=== PATIENT | female | born 1970 | race Caucasian/White ===

== ENCOUNTER → 2018-10-31 23:13 | Outpatient (CLI) | payer OTHER, SELFPAY ==
[2018-10-31 19:33] VITALS: BMI 31.1
[2018-10-31 23:37] LABS: Thyroid Stim Hormone (TSH) 1.81 uIU/mL (0.358-3.74)
== END ==
PROVIDERS: Family Provider Nurse Practitioner; PCP Nurse Practitioner; Referring Provider Nurse Practitioner; Visit Provider Nurse Practitioner
DX: E03.9 Hypothyroidism, unspecified (principal)
CPT/HCPCS: 84443

== ENCOUNTER → 2019-11-17 20:57 | Outpatient (CLI) | payer OTHER, SELFPAY ==
[2019-11-17 15:48] VITALS: BMI 32.5
[2019-11-17 21:30] LABS: Thyroid Stim Hormone (TSH) 2.07 uIU/mL (0.358-3.74)
== END ==
LOC: OLS.AHF 20:58 → LABSPEC 11-18 09:24
PROVIDERS: PCP Nurse Practitioner; Referring Provider Nurse Practitioner; Visit Provider Nurse Practitioner
DX: E03.9 Hypothyroidism, unspecified (principal)
CPT/HCPCS: 84443

== ENCOUNTER → 2020-12-02 21:44 | Outpatient (CLI) | payer BC, SELFPAY ==
[2020-12-02 22:40] LABS: Thyroid Stim Hormone (TSH) 1.52 uIU/mL (0.358-3.74)
== END ==
PROVIDERS: PCP Nurse Practitioner; Visit Provider Nurse Practitioner
DX: E03.9 Hypothyroidism, unspecified (principal)
CPT/HCPCS: 84443

== ENCOUNTER 2021-05-18 08:10 | Outpatient (CLI) | payer BC, SELFPAY ==
--- NOTE | 2021-05-18 08:15 | RAD_ITS ---
STUDY: X-RAY - ESOPHAGUS (BARIUM SWALLOW) WITH FLUOROSCOPY REASON FOR EXAM: Female, 51 years old. GERD TECHNIQUE: 19 view(s) of the esophagus were obtained following swallowing of barium. FLUOROSCOPY TIME (if supplied): (27 seconds) minutes/seconds COMPARISON: None. FINDINGS: There is no demonstrated esophageal foreign body. There is no demonstrated stricture or mucosal abnormality. Normal gastroesophageal junction, without a demonstrated hiatal hernia. The patient ingested a 12 mm tablet of barium without any difficulty. Normal visualized aortic arch and descending thoracic aorta. Normal visualized pulmonary parenchyma. Normal visualized osseous structures of the thorax. RAD/Esophagus Dual Contrast IMPRESSION: Normal plain film x-ray examination (barium swallow) of the esophagus. Electronically Signed: Regan Sears MD at 12:28 EST ,
== END 2021-05-18 23:59 | disposition home or self-care (01) ==
LOC: RAD 08:12
PROVIDERS: PCP Nurse Practitioner; Referring Provider Otolaryngology; Visit Provider Otolaryngology
DX: K21.9 Gastro-esophageal reflux disease without esophagitis (principal); R49.0 Dysphonia
CPT/HCPCS: 74221

== ENCOUNTER → 2022-01-31 | Outpatient (CLI) | payer OTHER, SELFPAY ==
[2022-01-31 22:28] LABS: Hemoglobin A1c 5.5 % (3.8-5.6)
[2022-01-31 22:41] LABS: Thyroid Stim Hormone (TSH) 3.63 uIU/mL (0.358-3.74)
== END | disposition home or self-care (01) ==
PROVIDERS: PCP Nurse Practitioner; Visit Provider Nurse Practitioner
DX: E03.9 Hypothyroidism, unspecified (principal); R63.5 Abnormal weight gain; E88.81 Metabolic syndrome and other insulin resistance
CPT/HCPCS: 82533; 83036; 84443

== ENCOUNTER → 2022-05-03 | Outpatient (CLI) | payer OTHER, SELFPAY ==
[2022-05-03 22:28] LABS: Thyroid Stim Hormone (TSH) 1.81 uIU/mL (0.358-3.74)
[2022-05-04 09:24] LABS: ALB/GLOB Ratio 1.1 RATIO (0.9-2.4); AST(SGOT) 13 U/L (15-37); Alanine Aminotransfer ALT/SGPT 25 U/L (13-56); Albumin, Serum 3.8 g/dL (3.2-5.0); Alkaline Phosphatase 67 U/L (45-117); Anion Gap 8 (5-15); BUN 14 mg/dL (7-18); CRP 3.88 mg/L (0.0-3.0); Calcium,Total 10.1 mg/dL (8.5-10.1); Chloride 107 mmol/L (98-107); Creatinine, Serum 0.88 mg/dL (0.55-1.02); EST Glomerular Filtration Rate 72 mL/min (>60); Est Glom Filt Rate - Afr Amer 87 mL/min (>60); Globulin 3.5 g/dL (2.2-4.2); Glucose 86 mg/dL (74-106); Potassium 3.8 mmol/L (3.5-5.1); Protein, Total 7.3 g/dL (6.4-8.2); Sodium Level 141 mmol/L (136-145)
[2022-05-04 09:58] LABS: Troponin-I HS 8 pg/mL (3.0-54.0)
== END | disposition home or self-care (01) ==
PROVIDERS: PCP Nurse Practitioner; Visit Provider Nurse Practitioner
DX: E03.9 Hypothyroidism, unspecified (principal); R11.0 Nausea; E07.9 Disorder of thyroid, unspecified
CPT/HCPCS: 80053; 84443; 84484; 86140

== ENCOUNTER → 2023-04-26 | Outpatient (CLI) | payer OTHER, SELFPAY ==
--- OUTSIDE RECORDS SUMMARY | 2023-04-26 20:14 | XMS RPT_ITS | CCD ---
Author Name Unknown Address [address] [place] [address] Organization [facility] Care Team Providers Care Coding Quality Coordinator Name Role Phone BaldoboyRadha bansal Unavailable Unavailable Yariel Saulius Unavailable Unavailable Marylou Meyers Unavailable Unavailable Jatin CARD DOFFER.Marylou PEARSON Primary Care Provide r Jatin CARD DOFFER.Marylou PEARSON Primary Care Provide r MARYLOU MEYERS Primary Care Unavailable MARYLOU MEYERS Primary Care Unavailable DANAY BRAVO Referring Unavailable MARYLOU MEYERS Primary Care Unavailable DANAY BRAVO Attending Unavailable Allergies Allergy Classification Reported Allergen(s) Allergy Type Date of Onset Reaction(s) Facility (1 source) No Known Medication Allergies; Translations: [No Known Medication Allergies] Propensity to adverse reactions to drug (disorder) [facility] Repository (7 sources) cefdinir; Translations: [CEFDINIR] Drug Allergy 9 Rash [facility] (7 sources) Sulfonamides (Antibiotic); Translations: [SULFA (SULFONAMIDE ANTIBIOTICS)] Drug Allergy 2 Rash, Itching [facility] (6 sources) Iodine; Translations: [IODINE] Drug Allergy 2 Other: See Comments [facility] Medications Current Medications Medication Drug Class(es) Dates Sig (Normalized) Sig (Original) amoxicillin 875 mg / clavulanate 125 mg oral tablet (2 sources) Penicillin-class Antibacterial Start: 02-21-2023 End: 02-28-2023 take 1 tablet by mouth twice daily amoxicillin-clav ulanate potassium (AUGMENTIN) 875-125 mg per tablet Indications: Otitis media with effusion, bilateral Take 1 tablet by mouth two times a day for 7 days. 14 tablet 0 02/21/2023 02/28/2023 Active Completed/Discontinued Medications Medication Drug Class(es) Dates Sig (Normalized) Sig (Original) Ethinyl Estradiol / Norethindrone (4 sources) Estrogen Start: 06-12-2022 take 1 tablet by mouth once daily Norethindrone-Eth Estradiol (OVCON-35) 0.4-35 mg-mcg per tablet Take 1 tablet by mouth once daily. New pack every 21 days. 112 tablet 4 06/12/2022 Active Problems Active Problems Problem Classification Problem Date Documented Da te Episodic/Chronic Esophageal disorders (6 sources) Gastroesophageal reflux disease; Translations: [Gastro-esophageal reflux disease without esophagitis] 08-28-2011 Chronic Menopausal disorders (1 source) Menopausal symptom; Translations: [Menopausal and female climacteric states] Chronic Mood disorders (6 sources) Premenstrual dysphoric disorder; Translations: [Premenstrual dysphoric disorder] 08-28-2011 Chronic Other upper respiratory infections (1 source) Sore throat symptom; Translations: [Acute pharyngitis, unspecified] 02-21-2023 Episodic Otitis media and related conditions (1 source) Otitis media; Translations: [Unspecified nonsuppurative otitis media, bilateral] 02-21-2023 Episodic Thyroid disorders (6 sources) Hypothyroidism; Translations: [Hypothyroidism, unspecified] 10-01-2013 Chronic Viral infection (1 source) Viral disease; Translations: [Viral infection, unspecified] 02-21-2023 Episodic Past or Other Problems Problem Classification Problem Date Documented Da te Episodic/Chronic Other screening for suspected conditions (not mental disorders or infectious disease) (4 sources) Patient encounter status; Translations: [Encounter for screening mammogram for malignant neoplasm of breast] Onset: 06-22-2022 Episodic Results Test Name Value Interpretation Reference Range Facil ity Vital Signs Date Time Vital Sign Value Performing Clinician Curtis hernandez 02-21-2023 13:01-0500 Body temperature 98.91 [degF] Nikole Hargrove APRN.CNP Work Phone: [facility] 02-21-2023 13:01-0500 Body weight 76.66 kg Nikole Hargrove APRN.CNP Work Phone: [facility] 02-21-2023 13:01-0500 Diastolic blood pressure 80 mm[Hg] Nikole Praisler-Wood CARD DOFFER.HORTICULTURE INSTRUCTOR Work Phone: [facility] 02-21-2023 13:01-0500 Heart rate 88 /min Nikole Praisler-Wood CARD DOFFER.HORTICULTURE INSTRUCTOR Work Phone: [facility] 02-21-2023 13:01-0500 Respiratory rate 16 /min Nikole Praisler-Wood CARD DOFFER.HORTICULTURE INSTRUCTOR Work Phone: [facility] 02-21-2023 13:01-0500 SaO2% (BldA) [Mass fraction] 97 % Nikole Praisler-Wood CARD DOFFER.HORTICULTURE INSTRUCTOR Work Phone: [facility] 02-21-2023 13:01-0500 Systolic blood pressure 138 mm[Hg] Nikole Praisler-Wood CARD DOFFER.HORTICULTURE INSTRUCTOR Work Phone: [facility] 06-12-2022 08:38-0400 Body weight 78.93 kg Danay Bravo MD Work Phone: [facility] 06-12-2022 08:38-0400 Diastolic blood pressure 88 mm[Hg] Danay Bravo MD Work Phone: [facility] 06-12-2022 08:38-0400 Systolic blood pressure 136 mm[Hg] Danay Bravo MD Work Phone: [facility] 06-06-2021 16:14-0400 Body weight 74.39 kg Danay Bravo MD Work Phone: [facility] 06-06-2021 16:14-0400 Diastolic blood pressure 80 mm[Hg] Danay Bravo MD Work Phone: [facility] 06-06-2021 16:14-0400 Systolic blood pressure 110 mm[Hg] Danay Bravo MD Work Phone: [facility] Encounters Encounter Date Encounter Type Care Provider Facility Start: 02-21-2023 End: 02-21-2023 ambulatory MARYLOU MEYERS Facility:[facility] Start: 02-21-2023 End: 02-21-2023 Patient encounter procedure Nikole DiazKatieJeremiah NATALIE.HORTICULTURE INSTRUCTOR Work Phone: [facility] Procedures Date Procedure Procedure Detail Performing Clinician Start: 02-21-2023 STREP A MOLECULAR (POC) Charmaine Garza APRN.HORTICULTURE INSTRUCTOR Work Phone: Start: 06-22-2022 End: 06-22-2022 Mammography Danay Bravo MD Work Phone: Start: 10-16-2012 Mammography Danay nickerson MD Work Phone: Plan of Treatment Date Care Activity Detail Author Start: 05-11-2029 Urine microalbumin profile [facility] Start: 06-13-2027 HPV TESTING HPV TESTING [facility] Start: 06-13-2027 PAP TESTING PAP TESTING [facility] Start: 08-10-2024 DIABETES SCREEN DIABETES SCREEN [facility] Start: 08-10-2024 Diabetes Screening Diabetes Screening [facility] Start: 06-23-2023 Mammography [facility] Start: 11-17-2022 Covid-19 Vaccine ( season) Covid-19 Vaccine ( season) [facility] Start: 11-17-2022 Influenza vaccination [facility] Start: 09-26-2022 HPV TESTING HPV TESTING [facility] Start: 09-26-2022 PAP TESTING PAP TESTING [facility] Start: 11-17-2021 Influenza vaccination INFLUENZA (#1) [facility] Start: 11-17-2020 Influenza vaccination INFLUENZA (#1) [facility] Start: 10-30-2020 COVID-19 VACCINE (3 - Booster for Pfizer series) COVID-19 VACCINE (3 - Booster for Pfizer series) [facility] Start: 07-25-2020 COVID-19 VACCINE (3 - Booster for Pfizer series) COVID-19 VACCINE (3 - Booster for Pfizer series) [facility] Start: 01-03-2020 SHINGRIX VACCINE (1 of 2) SHINGRIX VACCINE (1 of 2) [facility] Start: 2015 COLOGUARD (FIT-DNA) COLOGUARD (FIT-DNA) [facility] Start: 2015 Colonoscopy COLONOSCOPY [facility] Start: 2015 COLORECTAL CANCER SCREENING COLORECTAL CANCER SCREENING [facility] Start: [address] COLONOGRAPHY [facility] Start: 2015 DIABETES SCREEN DIABETES SCREEN [facility] Start: 2015 FECAL OCCULT BLOOD FECAL OCCULT BLOOD [facility] Start: 2015 Lipid 1996 panel - Serum or Plasma Lipid Screening [facility] Start: 2015 LIPID SCREEN LIPID SCREEN [facility] Start: 2015 SIGMOIDOSCOPY SIGMOIDOSCOPY [facility] Start: 10-16-2013 Mammography MAMMOGRAM [facility] Start: 01-03-1988 ANNUAL PCP TEAM CHRONIC DISEASE VISIT ANNUAL PCP TEAM CHRONIC DISEASE VISIT [facility] Start: 01-03-1988 HEPATITIS C SCREENING HEPATITIS C SCREENING [facility] Start: 01-03-1988 HIV SCREENING HIV SCREENING [facility] Start: 1970 HEPATITIS B (1 of 3 - 3-dose series) HEPATITIS B (1 of 3 - 3-dose series) [facility] Start: 1970 Hepatitis B Vaccine (1 of 3 - 3-dose series) Hepatitis B Vaccine (1 of 3 - 3-dose series) [facility] COVID & INFLUENZA A/ B & RSV NAAT, ROUTINE COVID & INFLUENZA A/B & RSV NAAT, ROUTINE Microbiology Routine Viral illness 02/21/2023 1:26 PM EST [facility] Work Phone: End: 07-12-2023 FERNANDA SCREENING FERNANDA SCREENING Radiology Routine Encounter for screening mammogram for breast cancer 1 Occurrences starting 06/12/2022 until 07/12/2023 [facility] Work Phone: Immunizations Immunization Date Immunization Notes Care Provider Fa cility 05-11-2019 tetanus toxoid, redu elier diphtheria toxoid, and acellular pertussis vaccine, adsorbed Danay Bravo MD Work Phone: [facility] 04-08-2019 pneumococcal polysaccharide vaccine, 23 valent Danay Bravo MD Work Phone: [facility] 12-30-2017 influenza virus vacc ine, unspecified formulation Screen Wstr [facility] Payers Date Payer Category Payer Unknown [id number] 2020 Unknown [employer] PPO [id number] 2020-Present [phone] [address] [place] [address] PPO [id number] 2020 Unknown [id number] 2017 Unknown 1970 Unknown [id number] Social History Date Type Detail Facility Start: 08-28-2011 Tobacco smoking stat [facility] Never smoked tobacco [facility] Start: 08-28-2011 Tobacco use and exposure Smoke less tobacco non-user [facility] Start: 06-06-2021 End: 02-21-2023 Alcohol intake Current drinker of alcohol (finding) [facility] Start: 08-28-2011 History SDOH Alcohol Comment rare [facility] Start: 1970 Sex Assigned At Not on file [facility] Start: 05-27-2021 End: 06-06-2021 Exposure to SARS-CoV-2 (event) Not sure [facility] Start: 04-12-2022 End: 06-12-2022 History of Social function [facility] Start: 04-12-2022 End: 06-12-2022 Tobacco use panel [facility] National Score (1-10 0), lower number is lower risk 73 [facility] Clinical Notes 06-06-2021 to 02-21-2023 Patient InstructionsNikole Hargrove APRN.HORTICULTURE INSTRUCTOR - 02/21/2023 1:24 PM ESTLetter - Mammography Coordinator - 06/23/2022 2:17 PM Kaity Shah RT(R) - 06/22/2022 8:10 AM EDT Note Date & Type Note Facility 02-21-2023 Note HNO ID: [id number] Author: Nikole Hargrove APRN.HORTICULTURE INSTRUCTOR Service: ? Author Type: Nurse Practitioner Type: Progress Notes Filed: 02/21/2023 1:33 PM Note Text: Subjective Sore Throat Associated symptoms include congestion, coughing, ear pain and headaches. Daya Cortes is a 53 year old female who presents with cough, congestion, sore throat for the past 3 days. She has been having some ear pain and congestion. She has never had a fever. She has been taking nyquil, sudafed, tylenol and advil without relief of symptoms. 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 Review of Systems Constitutional: Negative for chills and fever. HENT: Positive for congestion, ear pain and sore throat. Respiratory: Positive for cough. Cardiovascular: Negative. Musculoskeletal: Negative for myalgias. Neurological: Positive for headaches. BP 138/80 Pulse 88 Temp 37.2 ?C (98.9 ?F) Resp 16 Wt 76.7 kg (169 lb) LMP 05/28/2022 SpO2 97% BMI 30.91 kg/m? PAST MEDICAL HISTORY Diagnosis Date GERD (gastroesophageal reflux disease) Hypothyroid PMDD (premenstrual dysphoric disorder) PAST SURGICAL HISTORY Procedure Laterality Date NONE ALLERGIES Cefdinir, Contrast Dye [Iodine], and Sulfa (Sulfonamide Antibiotics) MEDICATIONS Norethindrone-Eth Estradiol (OVCON-35) 0.4-35 mg-mcg per tablet Take 1 tablet by mouth once daily. New pack every 21 days. LEVOTHYROXINE SODIUM (LEVOTHYROXINE ORAL) Take by mouth. OMEPRAZOLE 40 mg capsule amoxicillin-clavulanate potassium (AUGMENTIN) 875-125 mg per tablet Take 1 tablet by mouth two times a day for 7 days. RANITIDINE HCL (ZANTAC ORAL) Take by mouth. FAMILY HISTORY Problem Relation Age of Onset Cancer Mother lung Cancer Father ? Alzheimer's Disease Father Cancer Paternal Grandfather Bone Social History Tobacco Use Smoking status: Never Smokeless tobacco: Never Substance Use Topics Alcohol use: Yes Comment: rare Drug use: No Objective Physical Exam Vitals and nursing note reviewed. Constitutional: Appearance: Normal appearance. HENT: Mouth/Throat: Mouth: Mucous membranes are moist. Pharynx: Posterior oropharyngeal erythema (slight) present. Tonsils: 1+ on the right. 1+ on the left. Cardiovascular: Rate and Rhythm: Normal rate and regular rhythm. Heart sounds: Normal heart sounds. Pulmonary: Effort: Pulmonary effort is normal. No respiratory distress. Breath sounds: Normal breath sounds. No wheezing or rales. Lymphadenopathy: Cervical: Cervical adenopathy present. Neurological: Mental Status: She is alert. ASSESSMENT/PLAN: 1. Sore throat - ICD9: 462, ICD10: J02.9 (primary diagnosis) - suspect viral - Group A strep molecular testing negative - Discussed supportive care treatment with fluids, rest and analgesia. - STREP A MOLECULAR (POC) 2. Otitis media with effusion, bilateral - ICD9: 381.4, ICD10: H65.93 - Will begin treatment with as per antibiotic as written, see orders - Supportive care with plenty of fluids, rest, and analgesia prn. - AMOXICILLIN 875 MG-POTASSIUM CLAVULANATE 125 MG TABLET 3. Viral illness - ICD9: 079.99, ICD10: B34.9 - Discussed viral etiology and rationale for treatment. - Symptomatic treatment with prn analgesia - Supportive care with fluids and rest - COVID AND INFLUENZA A/B AND RSV NAAT, ROUTINE - Follow-up with your PCP in 3-5 days if symptoms have not improved or sooner if symptoms worsen - Discussed red flags and need for immediate medical evaluation if any occur. - Discussed supportive care treatment with fluids, rest and analgesia. - Discussed expected course of illness Nikole Hargrove APRN.LILI [facility] 02-21-2023 Instructions Nikole Hargrove APRN.LILI - 02/21/2023 1:25 PM EST ASSESSMENT/PLAN: 1. Sore throat - ICD9: 462, ICD10: J02.9 (primary diagnosis) - suspect viral - Group A strep molecular testing negative - Discussed supportive care treatment with fluids, rest and analgesia. - STREP A MOLECULAR (POC) 2. Otitis media with effusion, bilateral - ICD9: 381.4, ICD10: H65.93 - Will begin treatment with as per antibiotic as written, see orders - Supportive care with plenty of fluids, rest, and analgesia prn. - AMOXICILLIN 875 MG-POTASSIUM CLAVULANATE 125 MG TABLET - AMOXICILLIN 875 MG-POTASSIUM CLAVULANATE 125 MG TABLET 3. Viral illness - ICD9: 079.99, ICD10: B34.9 - Discussed viral etiology and rationale for treatment. - Symptomatic treatment with prn analgesia - Supportive care with fluids and rest - COVID & INFLUENZA A/B & RSV NAAT, ROUTINE - Follow-up with your PCP in 3-5 days if symptoms have not improved or sooner if symptoms worsen - Discussed red flags and need for immediate medical evaluation if any occur. - Discussed supportive care treatment with fluids, rest and analgesia. - Discussed expected course of illness Nikole Hargrove APRN.HORTICULTURE INSTRUCTOR documented in this encounter [facility] 02-21-2023 History of Present illness Narrative Subjective Sore Throat Associated symptoms include congestion, coughing, ear pain and headaches. Daya Cortes is a 53 year old female who presents with cough, congestion, sore throat for the past 3 days. She has been having some ear pain and congestion. She has never had a fever. She has been taking nyquil, sudafed, tylenol and advil without relief of symptoms. 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 Review of Systems Constitutional: Negative for chills and fever. HENT: Positive for congestion, ear pain and sore throat. Respiratory: Positive for cough. Cardiovascular: Negative. Musculoskeletal: Negative for myalgias. Neurological: Positive for headaches. BP 138/80 Pulse 88 Temp 37.2 C (98.9 F) Resp 16 Wt 76.7 kg (169 lb) LMP 05/28/2022 SpO2 97% BMI 30.91 kg/m PAST MEDICAL HISTORY Diagnosis Date GERD (gastroesophageal reflux disease) Hypothyroid PMDD (premenstrual dysphoric disorder) PAST SURGICAL HISTORY Procedure Laterality Date NONE ALLERGIES Cefdinir, Contrast Dye [Iodine], and Sulfa (Sulfonamide Antibiotics) MEDICATIONS Norethindrone-Eth Estradiol (OVCON-35) 0.4-35 mg-mcg per tablet Take 1 tablet by mouth once daily. New pack every 21 days. LEVOTHYROXINE SODIUM (LEVOTHYROXINE ORAL) Take by mouth. OMEPRAZOLE 40 mg capsule amoxicillin-clavulanate potassium (AUGMENTIN) 875-125 mg per tablet Take 1 tablet by mouth two times a day for 7 days. RANITIDINE HCL (ZANTAC ORAL) Take by mouth. FAMILY HISTORY Problem Relation Age of Onset Cancer Mother lung Cancer Father ? Alzheimer's Disease Father Cancer Paternal Grandfather Bone Social History Tobacco Use Smoking status: Never Smokeless tobacco: Never Substance Use Topics Alcohol use: Yes Comment: rare Drug use: No Objective Physical Exam Vitals and nursing note reviewed. Constitutional: Appearance: Normal appearance. HENT: Mouth/Throat: Mouth: Mucous membranes are moist. Pharynx: Posterior oropharyngeal erythema (slight) present. Tonsils: 1+ on the right. 1+ on the left. Cardiovascular: Rate and Rhythm: Normal rate and regular rhythm. Heart sounds: Normal heart sounds. Pulmonary: Effort: Pulmonary effort is normal. No respiratory distress. Breath sounds: Normal breath sounds. No wheezing or rales. Lymphadenopathy: Cervical: Cervical adenopathy present. Neurological: Mental Status: She is alert. ASSESSMENT/PLAN: 1. Sore throat - ICD9: 462, ICD10: J02.9 (primary diagnosis) - suspect viral - Group A strep molecular testing negative - Discussed supportive care treatment with fluids, rest and analgesia. - STREP A MOLECULAR (POC) 2. Otitis media with effusion, bilateral - ICD9: 381.4, ICD10: H65.93 - Will begin treatment with as per antibiotic as written, see orders - Supportive care with plenty of fluids, rest, and analgesia prn. - AMOXICILLIN 875 MG-POTASSIUM CLAVULANATE 125 MG TABLET 3. Viral illness - ICD9: 079.99, ICD10: B34.9 - Discussed viral etiology and rationale for treatment. - Symptomatic treatment with prn analgesia - Supportive care with fluids and rest - COVID & INFLUENZA A/B & RSV NAAT, ROUTINE - Follow-up with your PCP in 3-5 days if symptoms have not improved or sooner if symptoms worsen - Discussed red flags and need for immediate medical evaluation if any occur. - Discussed supportive care treatment with fluids, rest and analgesia. - Discussed expected course of illness Nikole Hargrove APRN.HORTICULTURE INSTRUCTOR documented in this encounter [facility] 06-23-2022 Miscellaneous Notes June 26, 2022 PID: [id number] Daya Cortes [address] [place] [address] Dear Ms. Cortes, We are pleased to inform you that the results of your recent breast imaging exam on 06/22/2022 are normal. Early detection of cancer is very important. We also understand recommendations regarding breast cancer screening are controversial. Please discuss with your primary care provider which strategy is best for you and whether a mammogram is right for you. Your imaging studies and report will be kept on file at [facility] as part of your permanent medical record and are available for your continuing care. Thank you for allowing us to help in meeting your health care needs. Sincerely, Dr. Joshi Interpreting Radiologist [facility] (Normal over 40) documented in this encounter [facility] 06-22-2022 Note HNO ID: [id number] Author: RT Jocelin([place]) Service: ? Author Type: Technologist Type: Progress Notes Filed: 06/22/2022 8:18 AM Note Text: Radiology Service Progress Note PATIENT NAME: Daya Cortes DATE OF SERVICE: June 22, 2022 TIME: 8:17 AM PATIENT IDENTITY VERIFICATION COMPLETED USING TWO (2) IDENTIFIERS: Name and Date of confirmed by patient verbally. FALL SCREENING: Has the patient had 2 falls in the last year or 1 fall with injury or currently using an Ambulatory Assistive Device (Walker, Cane, Wheelchair, Crutches, etc.)? No PATIENT GENDER DATA: Female. status: : No status: NO. PATIENT RELEVANT IMPLANT DATA REVIEWED: Not Applicable RADIOLOGY DEPARTMENT: Mammography PERIPHERAL IV DATA: Not applicable SIGNED BY: RT Jocelin([place]) June 22, 2022 8:17 AM [facility] 06-22-2022 History of Present illness Narrative Radiology Service Progress Note PATIENT NAME: Daya Cortes DATE OF SERVICE: June 22, 2022 TIME: 8:17 AM PATIENT IDENTITY VERIFICATION COMPLETED USING TWO (2) IDENTIFIERS: Name and Date of confirmed by patient verbally. FALL SCREENING: Has the patient had 2 falls in the last year or 1 fall with injury or currently using an Ambulatory Assistive Device (Walker, Cane, Wheelchair, Crutches, etc.)? No PATIENT GENDER DATA: Female. status: : No status: NO. PATIENT RELEVANT IMPLANT DATA REVIEWED: Not Applicable RADIOLOGY DEPARTMENT: Mammography PERIPHERAL IV DATA: Not applicable SIGNED BY: RT Jocelin(R) June 22, 2022 8:17 AM documented in this encounter [facility] 06-12-2022 Note HNO ID: [id number] Author: Danay Bravo MD Service: ? Author Type: Physician Type: Progress Notes Filed: 06/12/2022 9:12 AM Note Text: Daya Yanez is a 52 year old who presents for an annual gynecologic exam with complaints, menopausal symptoms. Postmenopausal: on continuous OCP's HRT use: as above Last Pap: 10/03/2017 normal HPV: 10/01/2017 negative History of abnormal pap: No Last mammogram: 2012 normal History of abnormal mammogram: No OB History T2 L3 SAB0 IAB0 Ectopic0 Multiple1 Live Births3 Digital Photo Printer History LMP: 05/28/2022, Having periods Age at Menarche: Age at First : Age at Menopause: Digital Photo Printer History Comments: Sexual Activity: Yes; No partner data on record Contraception: No contraception data on record PAST MEDICAL HISTORY Diagnosis Date GERD (gastroesophageal reflux disease) Hypothyroid PMDD (premenstrual dysphoric disorder) PAST SURGICAL HISTORY Procedure Laterality Date NONE FAMILY HISTORY Problem Relation Age of Onset Cancer Mother lung Cancer Father ? Alzheimer's Disease Father Cancer Paternal Grandfather Bone SOCIAL HISTORY Social History Tobacco Use Smoking status: Never Smokeless tobacco: Never Substance Use Topics Alcohol use: Yes Comment: rare Drug use: No REVIEW OF SYSTEMS Abdomen: No abdominal pain, nausea, vomiting, diarrhea, or constipation. No bloating, early satiety, indigestion, or increased flatulence. Bladder: No dysuria, gross hematuria, urinary frequency, urinary urgency, or incontinence Breast: No breast lumps, nipple d/c, overlying skin changes, redness or skin retraction Allergies and current medication updated:Yes EXAM: BP 136/88 Wt 174 lb (78.9kg) LMP 05/28/2022 GENERAL: pleasant, female in no apparent distress HEENT: Normocephalic, atraumatic, mucus membranes moist, and no lesions NECK: Supple, full range of motion, no adenopathy, and thyroid normal DERMATOLOGY: Normal, without lesions, non-icteric, and non-hirsute BREAST: soft, non-tender, symmetric, no dominant mass, normal nipple-areolar complex, no lymphadenopathy, and no nipple discharge CHEST: Clear to auscultation, Normal inspiratory effort, Regular rate and rhythm, and No murmurs, clicks, rubs or gallops ABDOMEN: soft, non-tender, no masses, and no hepatosplenomegaly PELVIC: external genitalia normal, normal Bartholin's glands, urethra, [place]'s glands, no vulvar lesions, no cervical lesions, good vaginal support, physiologic discharge present, normal appearing perineal body and perianal region BIMANUAL: uterus normal size, shape and consistency, midposition, no adnexal masses, and non-tender RECTOVAGINAL: deferred. NEURO: alert and oriented x3,exam grossly non-focal EXTREMITIES: normal ASSESSMENT/PLAN: 1) Health maintenance: Pap done with HPV. Mammogram ordered Change OCP's 2) Follow up one year or sooner as needed Danay Bravo MD [facility] 06-12-2022 History of Present illness Narrative Daya Yanez is a 52 year old who presents for an annual gynecologic exam with complaints, menopausal symptoms. Postmenopausal: on continuous OCP's HRT use: as above Last Pap: 10/03/2017 normal HPV: 10/01/2017 negative History of abnormal pap: No Last mammogram: 2012 normal History of abnormal mammogram: No OB History T2 L3 SAB0 IAB0 Ectopic0 Multiple1 Live Births3 Digital Photo Printer History LMP: 05/28/2022, Having periods Age at Menarche: Age at First : Age at Menopause: Digital Photo Printer History Comments: Sexual Activity: Yes; No partner data on record Contraception: No contraception data on record PAST MEDICAL HISTORY Diagnosis Date GERD (gastroesophageal reflux disease) Hypothyroid PMDD (premenstrual dysphoric disorder) PAST SURGICAL HISTORY Procedure Laterality Date NONE FAMILY HISTORY Problem Relation Age of Onset Cancer Mother lung Cancer Father ? Alzheimer's Disease Father Cancer Paternal Grandfather Bone SOCIAL HISTORY Social History Tobacco Use Smoking status: Never Smokeless tobacco: Never Substance Use Topics Alcohol use: Yes Comment: rare Drug use: No REVIEW OF SYSTEMS Abdomen: No abdominal pain, nausea, vomiting, diarrhea, or constipation. No bloating, early satiety, indigestion, or increased flatulence. Bladder: No dysuria, gross hematuria, urinary frequency, urinary urgency, or incontinence Breast: No breast lumps, nipple d/c, overlying skin changes, redness or skin retraction Allergies and current medication updated:Yes EXAM: BP 136/88 Wt 174 lb (78.9kg) LMP 05/28/2022 GENERAL: pleasant, female in no apparent distress HEENT: Normocephalic, atraumatic, mucus membranes moist, and no lesions NECK: Supple, full range of motion, no adenopathy, and thyroid normal DERMATOLOGY: Normal, without lesions, non-icteric, and non-hirsute BREAST: soft, non-tender, symmetric, no dominant mass, normal nipple-areolar complex, no lymphadenopathy, and no nipple discharge CHEST: Clear to auscultation, Normal inspiratory effort, Regular rate and rhythm, and No murmurs, clicks, rubs or gallops ABDOMEN: soft, non-tender, no masses, and no hepatosplenomegaly PELVIC: external genitalia normal, normal Bartholin's glands, urethra, [place]'s glands, no vulvar lesions, no cervical lesions, good vaginal support, physiologic discharge present, normal appearing perineal body and perianal region BIMANUAL: uterus normal size, shape and consistency, midposition, no adnexal masses, and non-tender RECTOVAGINAL: deferred. NEURO: alert and oriented x3,exam grossly non-focal EXTREMITIES: normal ASSESSMENT/PLAN: 1) Health maintenance: Pap done with HPV. Mammogram ordered Change OCP's 2) Follow up one year or sooner as needed Danay Bravo MD documented in this encounter [facility] 02-06-2022 Miscellaneous Notes Please send enough refills till her appointment on 06/12. Thank you documented in this encounter [facility] 06-06-2021 History of Present illness Narrative Daya Yanez is a 51 year old who presents for an annual gynecologic exam without complaints. Postmenopausal: on continuous OCP's HRT use: As above Last Pap: 10/03/2017 normal HPV: 10/01/2017 negative History of abnormal pap: No Last mammogram: 2012 normal History of abnormal mammogram: No OB History T2 L3 SAB0 IAB0 Ectopic0 Multiple1 Live Births3 Digital Photo Printer History LMP: 09/24/2017, Drug Induced Amenorrhea Age at Menarche: Age at First : Age at Menopause: Digital Photo Printer History Comments: Sexual Activity: Yes; No partner data on record Contraception: No contraception data on record PAST MEDICAL HISTORY Diagnosis Date GERD (gastroesophageal reflux disease) Hypothyroid PMDD (premenstrual dysphoric disorder) PAST SURGICAL HISTORY Procedure Laterality Date NONE FAMILY HISTORY Problem Relation Age of Onset Cancer Mother lung Cancer Father ? Alzheimer's Disease Father Cancer Paternal Grandfather Bone SOCIAL HISTORY Social History Tobacco Use Smoking status: Never Smoker Smokeless tobacco: Never Used Substance Use Topics Alcohol use: Yes Comment: rare Drug use: No REVIEW OF SYSTEMS Abdomen: No abdominal pain, nausea, vomiting, diarrhea, or constipation. No bloating, early satiety, indigestion, or increased flatulence. Bladder: No dysuria, gross hematuria, urinary frequency, urinary urgency, or incontinence Breast: No breast lumps, nipple d/c, overlying skin changes, redness or skin retraction Allergies and current medication updated:Yes EXAM: BP 110/80 Wt 164 lb (74.4kg) LMP 09/24/2017 GENERAL: pleasant, female in no apparent distress HEENT: Normocephalic, atraumatic, mucus membranes moist and no lesions NECK: Supple, full range of motion, no adenopathy and thyroid normal DERMATOLOGY: Normal, without lesions, non-icteric and non-hirsute BREAST: soft, non-tender, symmetric, no dominant mass, normal nipple-areolar complex, no lymphadenopathy and no nipple discharge CHEST: Clear to auscultation, Normal inspiratory effort, Regular rate and rhythm and No murmurs, clicks, rubs or gallops ABDOMEN: soft, non-tender, no masses and no hepatosplenomegaly PELVIC: external genitalia normal, normal Bartholin's glands, urethra, [place]'s glands, no vulvar lesions, no cervical lesions, good vaginal support, physiologic discharge present, normal appearing perineal body and perianal region BIMANUAL: uterus normal size, shape and consistency, midposition, no adnexal masses and non-tender RECTOVAGINAL: deferred. NEURO: alert and oriented x3,exam grossly non-focal EXTREMITIES: normal ASSESSMENT/PLAN: 1) Health maintenance: Pap/HPV up to date. Mammogram ordered 2) Follow up one year or sooner as needed Danay Bravo MD documented in this encounter [facility] Encounter for gynecological examination with abnormal finding- Primary Routine gynecological examination Symptomatic menopausal or female climacteric states Encounter for screening mammogram for breast cancer [facility] Encounter for screening mammogram for breast cancer [facility] Diagnosis Sore throat- Primary Acute pharyngitis Otitis media with effusion, bilateral Viral illness Unspecified viral infection, in conditions classified elsewhere and of unspecified site documented in this encounter [facility] for referral (narrative)* Diagnostic Procedure Only (Routine) - Pending Review Specialty Diagnoses / Procedures Referred By Dwayne newby Referred To Contact [facility] Diagnoses Encounter for screening mammogram for breast cancer Procedures FERNANDA SCREENING SCREENING MAMMOGRAPHY BI 2-VIEW BREAST INC Danay Saldana MD [address] [address] [facility] [address] [place] [address] Referral ID Status Reason Start Date Expiration Date Visits Requested Visits Authorized [id number] Pending Review Auto-Generat ed Referral 06/06/2021 07/06/2022 1 1 [facility] for referral (narrative)* Diagnostic Procedure Only (Routine) - Pending Review Specialty Diagnoses / Procedures Referred By Dwayne newby Referred To Contact [facility] Diagnoses Encounter for screening mammogram for breast cancer Procedures FERNANDA SCREENING SCREENING MAMMOGRAPHY BI 2-VIEW BREAST INC Danay Saldana MD [address] [address] [facility] [address] [place] [address] Referral ID Status Reason Start Date Expiration Date Visits Requested Visits Authorized [id number] Pending Review Auto-Generat ed Referral 06/12/2022 07/12/2023 1 1 [facility] for referral (narrative)* Diagnostic Procedure Only (Routine) - Closed Specialty Diagnoses / Procedures Referred By Contac t Referred To Contact [facility] Diagnoses Encounter for screening mammogram for breast cancer Procedures FERNANDA SCREENING SCREENING MAMMOGRAPHY BI 2-VIEW BREAST INC Danay Saldana MD [address] [place] [address] [facility] [address] [place] [address] Referral ID Status Reason Start Date Expiration Date V isits Requested Visits Authorized [id number] Closed Auto-Generate d Referral 06/06/2021 07/06/2022 1 1 [facility] for visit Narrative* Diagnostic Procedure Only (Routine) - Closed Specialty Diagnoses / Procedures Referred By Contdana t Referred To Contact [facility] Diagnoses Encounter for screening mammogram for breast cancer Procedures FERNANDA SCREENING SCREENING MAMMOGRAPHY BI 2-VIEW BREAST INC Danay Saldana MD [address] [address] [facility] [address] [place] [address] Referral ID Status Reason Start Date Expiration Date V isits Requested Visits Authorized [id number] Closed Auto-Generate d Referral 06/06/2021 07/06/2022 1 1 [facility] Summary Purpose Family History No Family History Records FoundNo Family History Records FoundNo Family History Records FoundNo Family History Records Found Advance Directives No Advanced Directives Records FoundDocuments on File Type Date Recorded Patient Expert Medical Writer Expl anation Advance Directive(s) 05/11/2019 9:28 PM Additional Source Comments INFORMATION SOURCE (unrecogn ized section and content) DATE CREATED AUTHOR AUTHOR'S ORGANIZ ATION 01/21/2018 [facility] DATE CREATED AUTHOR AUTHOR'S ORGANIZ ATION 08/12/2021 [facility] DATE CREATED AUTHOR AUTHOR'S ORGANIZ ATION 02/24/2023 [facility] Source Comments (unrecognize d section and content) In the event this informatio n is protected by the Federal Confidentiality of Alcohol and Drug Abuse Patient Records regulations: The Federal rules restrict any use of the information to criminally investigate or prosecute any alcohol or drug abuse patient.[facility] event this information is protected by the Federal Confidentiality of Alcohol and Drug Abuse Patient Records regulations: The Federal rules restrict any use of the information to criminally investigate or prosecute any alcohol or drug abuse patient.[facility] the event this information is protected by the Federal Confidentiality of Alcohol and Drug Abuse Patient Records regulations: The Federal rules restrict any use of the information to criminally investigate or prosecute any alcohol or drug abuse patient.[facility] the event this information is protected by the Federal Confidentiality of Alcohol and Drug Abuse Patient Records regulations: The Federal rules restrict any use of the information to criminally investigate or prosecute any alcohol or drug abuse patient.[facility] the event this information is protected by the Federal Confidentiality of Alcohol and Drug Abuse Patient Records regulations: The Federal rules restrict any use of the information to criminally investigate or prosecute any alcohol or drug abuse patient.[facility] the event this information is protected by the Federal Confidentiality of Alcohol and Drug Abuse Patient Records regulations: The Federal rules restrict any use of the information to criminally investigate or prosecute any alcohol or drug abuse patient.[facility] Reason for Visit (unrecogniz ed section and content) Reason Onset Date Comments Refill Request 02/06/2022 Reason Comments Sore Throat Congestion and right ear pain x3 days Care Teams (unrecognized sec tion and content) Coding Quality Coordinator Relationship Specialty Start Date End Date Marylou Meyers APRN.HORTICULTURE INSTRUCTOR [address] [place] [address] PCP - General Family Medicine 03/04/19 Coding Quality Coordinator Relationship Specialty Start Date End Date Marylou Meyers APRN.HORTICULTURE INSTRUCTOR [address] [place], [place] [phone] PCP - General Family Medicine 03/04/19 Coding Quality Coordinator Relationship Specialty Start Date End Date Marylou Meyers, CARD DOFFER.HORTICULTURE INSTRUCTOR [address] [place], [place] [phone] PCP - General Family Medicine 03/04/19 Coding Quality Coordinator Relationship Specialty Start Date End Date Marylou Meyers, CARD DOFFER.HORTICULTURE INSTRUCTOR [address] [place] [address] PCP - General Family Medicine 03/04/19 Coding Quality Coordinator Relationship Specialty Start Date End Date Marylou Meyers, CARD DOFFER.HORTICULTURE INSTRUCTOR [address] [place], [place] [phone] PCP - General Family Medicine 03/04/19 FOR RECORDS PERTAINING TO PATIENTS WHO ARE OR HAVE BEEN ENROLLED IN A CHEMICAL DEPENDENCY/SUBSTANCEABUSE PROGRAM, SOME INFORMATION MAY BE OMITTED. This clinical summary was aggregated from multiple sources. Caution should be exercised in using it in the provision of clinical care. This summary normalizes information from multiple sources, and as a consequence, information in this document may materially change the coding, format and clinical context of patient data. In addition, data may be omitted in some cases. CLINICAL DECISIONS SHOULD BE BASED ON THE PRIMARY CLINICAL RECORDS. [facility] [facility] provides no warranty or guarantee of the accuracy or completeness of information in this document.
[2023-04-26 20:16] LABS: Absolute Lymphocyte Count 3.14 X10^3/uL (0.83-4.51); Absolute Neutrophil Count 4.5 X10^3/uL (2.0-7.7); Basophil# 0.05 X10^3/uL; Basophil% 0.6 % (0-1); Eosinophil# 0.26 X10^3/uL; Hematocrit 40.3 % (37-47); Hemoglobin 13.2 g/dL (12.0-15.0); Lymphocyte # 3.14 X10^3/ul (0.83-4.51); Lymphocyte % 36.6 % (19-41); Mean Corp Hgb Conc 32.8 g/dL (32-36); Mean Corpuscular Hgb 30.2 pg (27.0-32.0); Mean Corpuscular Volume 92.2 fL (81-99); Mean Platelet Vol. 11.7 fl (6.2-12.0); Monocyte# 0.58 X10^3/uL; Monocyte% 6.8 % (0-10); NRBC Flagged by Analyzer 0 % (0-5); Neutrophil # 4.53 X10^3/uL (2.7-7.7); Neutrophil % 52.8 % (47-70); Platelet Count 268 K/mm3 (150-450); RBC Distribution Width CV 12.8 % (11.6-14.6); RBC Distribution Width SD 43.5 fl (35.1-43.9); Red Blood Count 4.37 M/mm3 (4.2-5.4); White Blood Count 8.6 K/mm3 (4.4-11.0)
[2023-04-26 20:36] LABS: ALB/GLOB Ratio 1.1 RATIO (0.9-2.4); AST(SGOT) 7 U/L (15-37); Alanine Aminotransfer ALT/SGPT 23 U/L (13-56); Albumin, Serum 3.6 g/dL (3.2-5.0); Alkaline Phosphatase 61 U/L (45-117); Anion Gap 4 (5-15); BUN 18 mg/dL (7-18); BUN/Creat Ratio 18.7 RATIO (10-20); Calcium,Total 9.7 mg/dL (8.5-10.1); Chloride 107 mmol/L (98-107); Cholesterol 257 mg/dL (200); Creatinine, Serum 0.96 mg/dL (0.55-1.02); EST Glomerular Filtration Rate 65 mL/min (>60); Est Glom Filt Rate - Afr Amer 78 mL/min (>60); Globulin 3.4 g/dL (2.2-4.2); Glucose 106 mg/dL (74-106); High Density Lipoprotein 58 mg/dL; Potassium 3.9 mmol/L (3.5-5.1); Sodium Level 139 mmol/L (136-145); Triglycerides 151 mg/dL; Very Low Density Lipoprotein 30 mg/dL (5-40)
== END | disposition home or self-care (01) ==
PROVIDERS: PCP Nurse Practitioner; Referring Provider Nurse Practitioner; Visit Provider Nurse Practitioner
DX: E03.9 Hypothyroidism, unspecified (principal); E78.00 Pure hypercholesterolemia, unspecified; E88.818 Other insulin resistance
CPT/HCPCS: 80053; 80061; 84443; 85025